=== PATIENT | male | born 1970 | race African-American/Black ===

== ENCOUNTER → 2024-07-28 10:19 | Outpatient (CLI) | payer BC, SELFPAY ==
--- NOTE | 2024-07-28 10:22 | DI.RAD.S_ITS ---
PROCEDURE: XR FINGER RT MIN 2V INDICATIONS: medial tip severe pain likely metal shaving/foreign body TECHNIQUE: AP hand, 2 views of the 3rd finger(s) acquired. COMPARISON: None. FINDINGS: Bones: No fractures or dislocations. No suspicious bony lesions. Soft tissues: No suspicious soft tissue calcifications. IMPRESSION: No acute bony abnormality. No metallic foreign body seen. No visualized evidence of osteomyelitis. Dictated by: Monico Pressley M.D. on 07/28/2024 at 10:58 Approved by: Monico Pressley M.D. on 07/28/2024 at 10:59
== END ==
PROVIDERS: Referring Provider Physician Assistant; Visit Provider Physician Assistant
DX: S69.91XA Unspecified injury of right wrist, hand and finger(s), initial encounter (principal); X58.XXXA Exposure to other specified factors, initial encounter
CPT/HCPCS: 73140